=== PATIENT | male | born 2000 | race African-American/Black ===

== ENCOUNTER → 2023-05-14 | Outpatient (CLI) | payer OTHER ==
[~2023-05-14] MED LIST: ISOVUE-300 61% 100ML VIAL As Ordered ONE; LIDOCAINE 1% MDV 20ML VIAL As Ordered ONE; TRIAMCINOLONE ACETONIDE SUSP 40MG/ML 1ML VIAL As Ordered ONE
== END ==
LOC: M RAD 08:59
PROVIDERS: ATTEND Physician Assistant Surgical
DX: S73.122A Ischiocapsular ligament sprain of left hip, initial encounter (principal); X58.XXXA Exposure to other specified factors, initial encounter; Y92.9 Unspecified place or not applicable
CPT/HCPCS: 20610; 77002; J3301; Q9967

== ENCOUNTER 2024-02-10 11:43 | Emergency (ER) | payer OTHER ==
[~2024-02-10] VITALS: Ht 172.7 cm; Wt 118.2 kg
[2024-02-10] MEDS: KETOROLAC 30 MG/ML 1ML VIAL IM ONE (14:36)
[2024-02-10 15:25] VITALS: BP 142/87; TEMP 98.2; O2SAT 97
== END 2024-02-10 16:07 | disposition home or self-care (01) ==
LOC: M ED 11:43 → EDBD 11:43 → M ED 16:07
DX: G44.209 Tension-type headache, unspecified, not intractable (principal); I10 Essential (primary) hypertension; M54.50 Low back pain, unspecified
CPT/HCPCS: 96372; 99284; J1885

== ENCOUNTER → 2024-07-02 | Outpatient (CLI) | payer OTHER | LOC: M RAD 17:15 | PROVIDERS: ATTEND Physician Assistant | DX: Z04.3 Encounter for examination and observation following other accident (principal) ==

== ENCOUNTER → 2024-07-27 | Outpatient (REF) | LOC: M PLAIMG 10:42 | PROVIDERS: ATTEND Internal Medicine | DX: M54.50 Low back pain, unspecified (principal); M54.6 Pain in thoracic spine; R07.9 Chest pain, unspecified ==